=== PATIENT | female | born 1985 | race Caucasian/White ===

== ENCOUNTER 2017-04-07 17:35 | Observation (INO) | payer MEDICAID, OTHER ==
[2017-04-07] MEDS ORDERED: CALC1CHW PO (18:15)
[2017-04-07] MEDS ORDERED: ASPITAB34 PO (18:15)
[2017-04-07] MEDS ORDERED: PREN-129 PO (18:15)
[2017-04-07 19:17] LABS: Urine Bacteria FEW /hpf (None Seen); Urine Blood Negative /uL (Negative); Urine Specific Gravity 1.016 (1.001-1.035); Urine WBC 40 /hpf (0 - 5)
[2017-04-07 19:35] LABS: Alcohol, Urine < 3.0 mg/dL (0-5); Amphetamine Screen, Urine POSITIVE (NEGATIVE); Barbiturate Scree,Urine NEGATIVE (NEGATIVE); Benzodiazephine Screen, Urine NEGATIVE (NEGATIVE); Cannabinoid Screen, Urine NEGATIVE (NEGATIVE); Cocaine Screen, Urine NEGATIVE (NEGATIVE); Opiate Scree,Urine NEGATIVE (NEGATIVE); Phencyclidine Screen, Urine NEGATIVE (NEGATIVE)
== END 2017-04-07 21:20 | disposition home or self-care (01) | DRG 566 ==
LOC: LDRP 17:35
PROVIDERS: ADMIT Specialist; ATTEND Specialist
DX: O26.892 Other specified pregnancy related conditions, second trimester (principal); F15.10 Other stimulant abuse, uncomplicated; R10.9 Unspecified abdominal pain; M54.5 Low back pain; O99.322 Drug use complicating pregnancy, second trimester; Z3A.25 25 weeks gestation of pregnancy
CPT/HCPCS: 59025; 76805; 80307; 81001; 81002; G0378

== ENCOUNTER 2021-03-04 03:26 | Emergency (ER) | payer MEDICAID ==
[~2021-03-04] VITALS: Ht 165.1 cm; Wt 61.2 kg
[~2021-03-04 03:26] MED LIST: ASPITAB34 PO; CALC1CHW PO; PREN-129 PO
[2021-03-04 06:56] VITALS: BP 110/74
[2021-03-04 08:46] LABS: Urine Bacteria FEW /hpf (None Seen); Urine WBC 6 /hpf (0 - 5)
[2021-03-04 09:20] LABS: Urine Specific Gravity 1.015 (1.001-1.035)
[2021-03-04 09:21] LABS: Urine Blood Trace /uL (Negative)
== END 2021-03-04 11:03 | disposition home or self-care (01) ==
LOC: ER 03:26
DX: N63.14 Unspecified lump in the right breast, lower inner quadrant (principal); F17.210 Nicotine dependence, cigarettes, uncomplicated; F12.10 Cannabis abuse, uncomplicated
CPT/HCPCS: 76642; 81001

== ENCOUNTER 2021-04-04 04:20 | Emergency (ER) | payer MEDICAID ==
[~2021-04-04] VITALS: Ht 165.1 cm; Wt 57.6 kg
[2021-04-04] MEDS ORDERED: SULF400T11 PO (05:19)
[2021-04-04 05:21] VITALS: BP 109/63
== END 2021-04-04 05:45 | disposition home or self-care (01) ==
LOC: ER 04:20
DX: N39.0 Urinary tract infection, site not specified (principal); F17.210 Nicotine dependence, cigarettes, uncomplicated; Z79.82 Long term (current) use of aspirin; Z79.899 Other long term (current) drug therapy
CPT/HCPCS: 81002; 81025